=== PATIENT | male | born 1970 | race African-American/Black ===

== ENCOUNTER 2016-09-04 13:26 | Emergency (ER) | payer OTHER ==
[~2016-09-04] VITALS: Ht 182.9 cm; Wt 97.5 kg
[~2016-09-04 13:26] MED LIST: ARIP30TA PO; CARI350T PO; CLON2TAB PO; GABA-534 PO; HYDR-548 PO; HYDR1TAB PO; MARA300T4 PO; QUET200T PO; QUET400T PO; RALT400T PO; SULF1TAB48 PO; VENL100T4 PO; VENL75TA54 PO
[2016-09-04 13:53] LABS: BASOPHILS % (AUTO) 1.1 % (0.0-2.0); DIFF TOTAL % 100 %; EOSINOPHILS # (AUTO) 0.1 /CMM (0.0-0.7); EOSINOPHILS % (AUTO) 1.9 % (0.0-6.0); HEMATOCRIT 44 % (39-51); HEMOGLOBIN 14.9 g/dL (13.5-17.5); LYMPHOCYTES # (AUTO) 1.7 /CMM (0.8-4.8); LYMPHOCYTES % (AUTO) 39.7 % (20.0-44.0); MEAN CORPUSCULAR HEMOGLOBIN 33 PG (26.0-33.0); MEAN CORPUSCULAR HGB CONC 34 g/dl (31.0-36.0); MEAN CORPUSCULAR VOLUME 97 fL (80-96); MONOCYTES # (AUTO) 0.6 /CMM (0.1-1.30); MONOCYTES % (AUTO) 13.2 % (2.0-12.0); NEUTROPHILS # (AUTO) 1.8 /CMM (1.8-8.9); NEUTROPHILS % (AUTO) 44.1 % (43.0-81.0); PLATELET COUNT (AUTO) 363 /CMM (150-450); RED BLOOD CELL COUNT(AUTO) 4.58 MIL/uL (4.5-6.0); WHITE BLOOD COUNT (AUTO) 4.2 K/uL (4.3-11.0)
[2016-09-04 14:00] LABS: ANION GAP 11 (5-14); CALCIUM, SERUM 9.1 mg/dL (8.5-10.1); CARBON DIOXIDE 28 mmol/L (21-32); CHLORIDE 107 mmol/L (98-107); GFR 97 mL/min (>60); GLUCOSE 82 mg/dL (74-106); SODIUM SERUM 142 mmol/L (136-145); UREA NITROGEN, BLOOD 12 mg/dL (7-18)
[2016-09-04 14:03] LABS: ADD UA MICROSCOPIC NO; KETONES,URINE Negative (NEGATIVE); LEUKOCYTE ESTERASE ,URINE Negative (NEGATIVE)
[2016-09-04 14:11] LABS: ALANINE AMINOTRANSFERASE 15 U/L (12-78); ALBUMIN 4.1 g/dL (3.4-5.0); ASPARTATE AMINOTRANSFERASE 17 U/L (15-37); BILIRUBIN,DIRECT 0.1 mg/dL (0.0-0.2); BILIRUBIN,TOTAL 0.7 mg/dL (0.2-1.0); INDIRECT BILIRUBIN 0.6 mg/dL (0.0-1.1); SALICYLATE 2.4 mg/dL (2.8-20.0); TOTAL PROTEIN, SERUM 7.6 g/dL (6.4-8.2)
[2016-09-04 14:12] LABS: ACETAMINOPHEN 0 ug/ml (10-30)
[2016-09-04 14:13] LABS: CANNABINOID, URINE NEGATIVE (NEGATIVE); PHENCYCLIDINE SCREEN,URINE NEGATIVE (NEGATIVE)
[2016-09-04] MEDS ORDERED: LORAZEPAM 1 MG TABLET ONE (17:01)
[2016-09-04] MEDS ORDERED: LORAZEPAM 1 MG TABLET PO ONE (17:30)
[2016-09-04] MEDS ORDERED: QUETIAPINE FUMARATE 100 MG TABLET PO SCH (17:30)
[2016-09-04 20:35] VITALS: BP 116/65
== END 2016-09-04 20:37 ==
LOC: ER 13:28
DX: F29 Unspecified psychosis not due to a substance or known physiological condition (principal); F20.9 Schizophrenia, unspecified; F32.9 Major depressive disorder, single episode, unspecified; R44.0 Auditory hallucinations; Z88.1 Allergy status to other antibiotic agents; Z72.0 Tobacco use
CPT/HCPCS: 36415; 80048-TC; 80076-TC; 80305; 81000-TC; 85025-TC; A4606; G0480; G6039-TC; Z7610

== ENCOUNTER 2016-10-24 10:45 | Inpatient (IN) | payer OTHER ==
[~2016-10-24] VITALS: Ht 182.9 cm; Wt 98.9 kg
--- NOTE | 2016-10-24 12:57 | NUR ---
MS 2 / RN ADMITTING NOTES ADMITTED PATIENT AMBULATORY ACCOMPANIED BY STAFF OF DR DELEON WITH DIAGNOSIS OF SCHIZOPRENIA WITH CONDITION OF ACUTE EXACERBATION OF PSYCHOSIS. PATIENT HAS SIGNIFICANT DIAGNOSIS OF DEPRESSION, HIV, COPD AND PAST STOMACH SURGERY. PATIENT IS ADMITTED FOR CLINICAL TRIAL. HE IS ALERT AND ORIENTED X4, IN NO ACUTE SIGNS OF DISTRESS. ABLE TO VERBALIZED NEEDS WITH NO COMPLAINTS OF PAIN OR DISCOMFORTS DURING ADMISSION. DENIES ANY SUICIDAL IDEATION. PATIENT IS ON REGULAR DIET AND SMOKER, HE IS ALLOWED TO SMOKE OUTSIDE PER UNIT SCHEDULE. HE IS ON ROOM AIR, TOLERATING AND BREATHING WELL. PLACED CALL LIGHT WITHIN EASY REACH. BED KEPT LOW AND LOCK FOR SAFETY. WILL CONTINUE TO ASSESS AND MONITOR PATIENT'S CONDITION ACCORDINGLY.
[2016-10-24 14:50] VITALS: BP 134/85
[2016-10-24 16:00] VITALS: BP 150/83
[2016-10-24] MEDS ORDERED: MAG HYDROX/AL HYDROX/SIMETH 30 ML UDC PO PRN (16:00)
[2016-10-24] MEDS ORDERED: LORAZEPAM 1 MG TABLET FOR AGITATION PO PRN (16:00)
[2016-10-24] MEDS ORDERED: IBUPROFEN 200 MG TABLET PO PRN (16:00)
[2016-10-24] MEDS ORDERED: ACETAMINOPHEN ES 500 MG TABLET PO PRN (16:00)
[2016-10-24] MEDS ORDERED: MAGNESIUM HYDROXIDE 30 ML UDC PO PRN (16:00)
[2016-10-24] MEDS: ESCITALOPRAM OXALATE (10 MG) 10 MG TABLET PO SCH (16:45)
[2016-10-24] MEDS: LORAZEPAM 1 MG TABLET PO SCH (17:22)
--- NOTE | 2016-10-24 19:02 | NUR ---
MS RN CLOSING NOTES: PATIENT RESTING IN BED IN NO ACUTE SIGNS OF DISTRESS. ALERT AND ORIENTED X 4 AND ABLE TO MAKE NEEDS AND CONCERNS KNOWN. PATIENT AMBULATES AT TIMES DURING TOUR. MAINTAINED ON ROOM AIR, BREATHING WELL WITH NO SOB NOTED. ALL NEEDS AND CARE WELL PROVIDED. DUE MEDS GIVEN ORDERED AND TOLERATED. CALL LIGHT KEPT WITHIN REACH. BED LOW AND LOCKED FOR SAFETY PRECAUTIONS. WILL ENDORSED TO NEWS PRODUCTION ASSISTANT FOR CONTINUITY OF CARE.
--- NOTE | 2016-10-24 19:30 | NUR ---
RN NOTE; RECEIVED PT IN BED AWAKE AND ALERT. BREATHING EVENLY. NO SOB. NO DISTRESS. SKIN WARM AND DRY TO TOUCH. NO PSYCH OR BEHAVIORAL ISSUES NOTED AT THIS TIME. NO C/O PAIN OR DISCOMFORT. REQUESTING SMOKING BREAK. NEEDS ATTENDED. CALL LIGHT WITHIN REACH. WILL CONT TO MONITOR.
[2016-10-24 20:00] VITALS: BP 142/80
[2016-10-24] MEDS: OLANZAPINE 10 MG TABLET PO SCH (21:18)
[2016-10-24] MEDS ORDERED: QUETIAPINE FUMARATE 100 MG TABLET PO SCH (22:00)
[2016-10-24] MEDS: LORAZEPAM 1 MG TABLET FOR INSOMNIA PO PRN (23:47)
--- NOTE | 2016-10-24 23:48 | NUR ---
RN NOTE; ATIVAN GIVEN PER PT'S REQUEST FOR C/O INSOMNIA. WILL CONT TO MONITOR
[2016-10-25] VITALS: BP 142/80
--- NOTE | 2016-10-25 06:37 | NUR ---
RN NOTE; PT AWAKE AND AMBULATORY. OX3. REMAINED STABLE DURING THE SURGEON ASSISTANT W/ NO ACUTE CHANGES. NO BEHAVIORAL OR PSYCH ISSUES. NO REPORTED HALLUCINATIONS. NEEDS ATTENDED. ASSISTED W/ ADLS. CALL LIGHT WITHIN REACH. WILL CONT TO MONITOR AND WILL ENDORSE TO AM SHIFT FOR IRVIN.
[2016-10-25 08:00] VITALS: BP 118/80
[2016-10-25] MEDS: LORAZEPAM 1 MG TABLET PO SCH ×3 (08:57→16:19)
[2016-10-25] MEDS: ESCITALOPRAM OXALATE (10 MG) 10 MG TABLET PO SCH (08:57)
--- NOTE | 2016-10-25 09:30 | NUR ---
MS RN NOTES PATIENT REQUESTED TO ATTEND ACTIVITY ROOM ESCORTED TO ACTIVITY ROOM.
--- NOTE | 2016-10-25 14:00 | NUR ---
MS RN NOTES PATIENT NOTED PLAYING FOREST WITH ROOMMATE.
[2016-10-25 16:06] VITALS: BP 109/72
--- NOTE | 2016-10-25 19:29 | NUR ---
MS RN NOTES PATIENT IN BED RESTING NO SOB OR ACUTE DISTRESS. ALL DUE MEDICATIONS GIVEN, ALL NEED MET WILL ENDORSE TO PM SHIFT IRVIN. PATIENT COOPERATIVE , COMPLIANT NOTED HOURS OF SLEEP 1 HOUR. WILL ENDORSE TO PM SHIFT IRVIN.
[2016-10-25 20:00] VITALS: BP 135/80
--- NOTE | 2016-10-25 20:00 | NUR ---
RN NOTES RECEIVED PX AWAKE, ALERT, ORIENTED X 3, MOVING INDEPENDENTLY IN BED; COOPERATIVE; DENIED PAIN, SOB, N/V; WITH STEADY GAIT; WILL CONTINUE TO MONITOR.
[2016-10-25] MEDS: LORAZEPAM 1 MG TABLET FOR INSOMNIA PO PRN (21:05)
--- NOTE | 2016-10-25 21:11 | NUR ---
RN NOTES BACK TO ROOM AFTER SMOKING CIGARETTE, ACCOMPLANIED BY STOCK WORKER. REQUESTED FOR ATIVAN FOR SLEEP.
[2016-10-25] MEDS ORDERED: QUETIAPINE 300 MG PO SCH (22:00)
[2016-10-25] MEDS ORDERED: QUETIAPINE FUMARATE 100 MG TABLET PO SCH (22:00)
[2016-10-25] MEDS ORDERED: OLANZAPINE 2.5 MG TABLET ONE (22:18)
[2016-10-25] MEDS: OLANZAPINE 10 MG TABLET PO SCH (22:26)
--- NOTE | 2016-10-25 23:00 | NUR ---
RN NOTES PX ATE 2 SANDWICHES PER REQUEST. DENIED PAIN, SOB. DENIED HALLUCINATIONS.
--- NOTE | 2016-10-26 00:53 | NUR ---
RN NOTES SLEEPING, NOT IN DISTRESS, RESP EVEN AND UNLABORED.
--- NOTE | 2016-10-26 06:15 | NUR ---
RN NOTES CONDITION UNCHANGED; PATIENT RESTING COMFORTABLY IN BED, NO SOB, NO DISTRESS, NOT IN APPARENT PAIN, SLEPT FOR 5 HOURS DURING SHIFT FROM [id number]. NO BEHAVIOR CHANGE, HE DENIED HE HAS HALLUCINATIONS AT THIS TIME. PATIENT IS COOPERATIVE AND CALM. NEEDS ATTENDED. CALL LIGHT WITHIN REACH.
[2016-10-26 08:00] VITALS: BP 118/70
--- NOTE | 2016-10-26 08:00 | NUR ---
MS RN NOTES PATIENT NOTED SLEEPING IN BED WILL CONTINUE TO MONITOR.
[2016-10-26] MEDS: LORAZEPAM 1 MG TABLET PO SCH ×3 (08:27→16:54)
[2016-10-26] MEDS: ESCITALOPRAM OXALATE (10 MG) 10 MG TABLET PO SCH (08:27)
[2016-10-26 16:00] VITALS: BP 113/69
--- NOTE | 2016-10-26 19:03 | NUR ---
MS RN NOTES PATIENT IN BED RESTING NO SOB OR ACUTE DISTRESS NOTED. ALL DUE MEDICATIONS GIVEN, ALL NEEDS MET. PATIENT COOPERATIVE, NOTED HOURS OF SLEEP 4 HOURS.
--- NOTE | 2016-10-26 19:40 | NUR ---
MS/RN OPENING NOTES PT AWAKE, A/OX4, ON ROOM AIR, NO S/S OF DISTRESS NOTED. DENIES PAIN. BREATHING EVEN AND UNLABORED. PT IS CALM AND COOPERATIVE, AND NOTES ON/OFF AUDITORY HALLUCINATIONS BUT NONE AT THIS TIME. MENTIONED THAT HE USES HEADPHONES TO DISTRACT FROM THE HALLUCINATIONS. DENIES THOUGHTS OF SI/HI. BED IN LOW/LOCKED POSITION. CALL LIGHT IN CLOSE REACH. WILL CONTINUE TO MONITOR.
[2016-10-26 20:00] VITALS: BP 118/79
--- NOTE | 2016-10-26 20:45 | NUR ---
MS/RN NOTES PT BACK TO UNIT FROM SMOKING, ACCOMPANIED BY RISK PREVENTION ENGINEER.
[2016-10-26 21:00] VITALS: BP 118/79
[2016-10-26] MEDS: QUETIAPINE 200 MG PO SCH (23:18)
[2016-10-26] MEDS: LORAZEPAM 1 MG TABLET FOR INSOMNIA PO PRN (23:21)
--- NOTE | 2016-10-26 23:25 | NUR ---
MS/RN NOTES PT REQUESTING ATIVAN TO HELP HIM SLEEP. ADMINISTERED PRN ATIVAN 1MG PO. WILL MONITOR FOR EFFECTIVENESS
[2016-10-27] MEDS ORDERED: OLANZAPINE 10 MG TABLET ONE (00:24)
--- NOTE | 2016-10-27 00:30 | NUR ---
MS/RN NOTES GAVE SCHEDULED ZYPREXA 10MG PO LATE. MED NOT SHOWING UP IN [facility]. CHECKED CASSETTE AND ONLY HOME MEDICATION WAS IN CASSETTE. ASKED STICKER HAND SANTO IF SHE COULD OVERRIDE AND SHE SAID TO ASK BUZZSAW OPERATOR HELPERALDA DURANT FROM 3W. ASKED BUZZSAW OPERATOR HELPER FROM 3W IF SHE COULD OVER RIDE BUT WAS BUSY WITH 2 UNSTABLE PATIENTS, SHE WOULD COME UP SOON SHE WAS DONE. DOUBLE CHECKED MEDICATION ORDER WITH ALDA HOLDEN DUE TO THE MEDICATION NOT SHOWING UP AT ALL IN THE [facility] BUT WAS SHOWN A SCHEDULED ORDER ON THE EMAR. CARLEEN VERIFIED ORDER AND SAID OKAY TO GIVE, UNSURE WHY IT WASNT SHOWN IN [facility] IF IT WAS A SCHEDULED MEDICATION. ZYPREXA ADMINISTERED
[2016-10-27] MEDS: OLANZAPINE 10 MG TABLET PO SCH (00:31)
--- NOTE | 2016-10-27 00:45 | NUR ---
MS/RN NOTES PT BACK TO UNIT, GOT COOKIES FROM VENDING MACHINE DOWNSTAIRS. ACCOMPANIED BY MAINTENANCE CRAFTSMAN.
--- NOTE | 2016-10-27 07:27 | NUR ---
MS/RN CLOSING NOTES PT AWAKE, A/OX4. ON ROOM AIR, BREATHING EVEN AND UNLABORED. DENIES PAIN. ALL DUE MEDICATION ADMINISTERED. SLEPT 5 HOURS FROM 0100- 0600. MADE PT COMFORTABLE THROUGHOUT SHIFT, ALL NEEDS MET AND ATTENDED TO. BED IN LOW/LOCKED POSITION, CALL LIGHT IN REACH. ENDORSED TO AM SHIFT IRVIN.
[2016-10-27 08:00] VITALS: BP 107/72
--- NOTE | 2016-10-27 08:00 | NUR ---
MS RN NOTES PATIENT IN BED SLEEPING NO SOB OR ACUTE DISTRESS NOTED. BED IN LOW LOCKED POSITION, CALL LIGHT WITHIN REACH WILL CONTINUE TO MONITOR.
[2016-10-27] MEDS: LORAZEPAM 1 MG TABLET PO SCH ×3 (08:21→17:48)
[2016-10-27 16:00] VITALS: BP 110/78
--- NOTE | 2016-10-27 18:45 | NUR ---
MS RN NOTES PATIENT IN BED RESTING NO SOB OR ACUTE DISTRESS NOTED. ALL DUE MEDICATIONS GIVEN, ALL NEEDS MET. PATIENT DENIES FEELING ANXIOUS. NO AGITATION NOTED. WILL ENDORSE CARE TO PM SHIFT.
--- NOTE | 2016-10-27 19:30 | NUR ---
MS/RN OPENING NOTES PT AWAKE, A/OX4, ON ROOM AIR WITH NO DISTRESS NOTED. DENIES PAIN. CALM AND COOPERATIVE, WITHDRAWN. DENIES SI/HI. NOTED AUDITORY HALLUCINATIONS OFF/ON, SAYS THAT THEY ARE TAUNTING HIM. BED IN LOW/LOCKED POSITION, CALL LIGHT IN REACH. WILL CONTINUE TO MONITOR
[2016-10-27 20:00] VITALS: BP 133/76
[2016-10-27] MEDS ORDERED: OLANZAPINE 5 MG TABLET ONE (21:34)
--- NOTE | 2016-10-27 22:00 | NUR ---
MS/RN NOTES PT ARRIVED TO UNIT FROM SMOKE BREAK, ACCOMPANIED BY GLASS SELECTOR. WILL CONTINUE TO MONITOR
[2016-10-27] MEDS: QUETIAPINE 200 MG PO SCH (22:18)
[2016-10-27] MEDS: LORAZEPAM 1 MG TABLET FOR INSOMNIA PO PRN (22:18)
[2016-10-27] MEDS: OLANZAPINE 5 MG TABLET PO SCH (22:18)
--- NOTE | 2016-10-28 07:03 | NUR ---
MS/RN CLOSING NOTES PT ASLEEP, EASILY AROUSABLE TO NAME/TOUCH. NO CHANGES OVERNIGHT. PT SLEPT APPROX. 6HRS DURING SHIFT. HAD A SHOWER AROUND 0600 THIS AM. MADE PT COMFORTABLE THROUGHOUT SHIFT. ALL NEEDS MET AND ATTENDED TO. WILL ENDORSE TO AM SHIFT IRVIN. Addendum: 10/28/16 at 0738 by PERI VELASQUEZ RN NO CHANGES IN BEHAVIOR NOTED. PT REMAINS PLEASANT, CALM AND COOPERATIVE.
--- NOTE | 2016-10-28 08:27 | NUR ---
MS/RN NOTES PATIENT AWAKE AND ORIENTED X4, AMBULATORY WITH STEADY GAIT, COMFORTABLE WITH NO S/S OF DISTRESS OR DISCOMFORT. PATIENT DENIES PAIN AT THIS TIME. INSTRUCTED PATIENT TO USE THE CALL LIGHT FOR ASSISTANCE. WILL CONTINUE TO MONITOR.
[2016-10-28 08:38] VITALS: BP 136/88
[2016-10-28] MEDS: ESCITALOPRAM OXALATE (10 MG) 10 MG TABLET PO SCH (09:34)
[2016-10-28] MEDS: LORAZEPAM 1 MG TABLET PO SCH ×3 (09:34→18:20)
[2016-10-28 16:00] VITALS: BP 119/69
--- NOTE | 2016-10-28 18:14 | NUR ---
MS/RN NOTES RECEIVED VERBAL ORDER BY DR. DELEON TO CHANGE ATIVAN 1MG EVERY 6 HOURS PRN TO ATIVAN 1MG EVERY 4 HOURS PRN AND TO CHANGE ATIVAN 1 MG HS PRN TO ATIVAN 2 MG HS PRN. ORDERS SENT TO PHARMACY .
[2016-10-28] MEDS ORDERED: LORAZEPAM 1 MG TABLET FOR AGITATION PO PRN (19:00)
[2016-10-28 20:00] VITALS: BP 131/77
--- NOTE | 2016-10-28 20:00 | NUR ---
RN NOTES PX RECEIVED AWAKE, ALERT, ORIENTED X 3, ON ROOM AIR, AMBULATORY WITH STEADY GAIT; DENIED SOB, N/V, NOT IN DISTRESS; DENIED HALLUCINATIONS; COMPLAINED OF HEADACHE FRONTAL DULL 6/10, TYLENOL GIVEN PER REQUEST. DISCUSSED PLAN OF CARE.
[2016-10-28] MEDS: OLANZAPINE 5 MG TABLET PO SCH (21:21)
[2016-10-28] MEDS: QUETIAPINE 200 MG PO SCH (21:21)
[2016-10-28] MEDS: LORAZEPAM 1 MG TABLET FOR INSOMNIA PO PRN (21:25)
[2016-10-28] MEDS ORDERED: QUETIAPINE FUMARATE 100 MG TABLET PO SCH (22:00)
--- NOTE | 2016-10-29 02:13 | NUR ---
RN NOTES PX SLEEPING, RESP EVEN AND UNLABORED; NO S/SX OF DISTRESS. CONTINUED TO MONITOR. CALL LIGHT WITHIN REACH.
--- NOTE | 2016-10-29 06:19 | NUR ---
RN NOTES PX ALREADY AWAKE, GOT UP AND TOOK A SHOWER; DENIED PAIN, SOB, N/V; NO ADVERSE EVENTS OVERNIGHT; PX REMAINED CALM AND COOPERATIVE. WILL ENDORSE TO NEXT RN.
--- NOTE | 2016-10-29 07:15 | NUR ---
MS RN OPENING RECEIVED PATIENT A/OX4 DENIES PAIN, SOB, DIFFICULTY BREATHING PATIENT RESTING COMFORTABLY AT THIS TIME. PATIENT STATES NO NEEDS AND CALL LIGHT IN REACH, BED LOWERED AND LOCKED, RAILS UPX2 FOR SAFETY AND WILL ROUND Q2HOR LESS PER NEEDS
[2016-10-29 08:00] VITALS: BP 126/88
[2016-10-29] MEDS: ESCITALOPRAM OXALATE (10 MG) 10 MG TABLET PO SCH (09:14)
[2016-10-29] MEDS: LORAZEPAM 1 MG TABLET PO SCH ×3 (09:15→16:42)
[2016-10-29 16:00] VITALS: BP 124/87
--- NOTE | 2016-10-29 18:49 | NUR ---
MS RN CLOSING PATIENT STABLE NO COMPLICATIONS. ALL DUE MEDS GIVEN ALL NEEDS MET. PATIENT INDEPENDENT. PATIENT LEFT WITH CALL LIGHT IN REACH, BED LOWERED AND LOCKED, RAILS UPX3 FOR SAFETY. WILL ENDORSE CARE TO RN. PATIENT COMPLIANT AND NO COMPLICATIONS.
--- NOTE | 2016-10-29 19:40 | NUR ---
MS CLINICAL TRIALS STUDY SITTING ON EDGE OF BED EATING HIS DINNER FOOD,NO SUSPICIOUS BEHAVIOR NOTED,AMBULATORY.CALL LIGHT IN REACH,NEEDS ANTICIPATED.
[2016-10-29 20:00] VITALS: BP 128/70
[2016-10-29] MEDS ORDERED: OLANZAPINE 5 MG TABLET ONE (20:47)
[2016-10-29] MEDS: OLANZAPINE 5 MG TABLET PO SCH (21:03)
[2016-10-29] MEDS: QUETIAPINE 200 MG PO SCH (21:03)
[2016-10-29] MEDS: LORAZEPAM 1 MG TABLET FOR INSOMNIA PO PRN (21:10)
--- NOTE | 2016-10-29 21:10 | NUR ---
MS CLINICAL STUDY C/O INSOMNIA,ATIVAN 2MG PO GIVEN
--- NOTE | 2016-10-30 06:27 | NUR ---
MS RN NOTES SLEPT 8 HOURS AT [facility],REMAINS CALM.MED COMPLIANT.STABLE TO CONTINUE WITH CLINICAL STUDY.WILL ENDORSE TO DAY NURSE FOR IRVIN.
[2016-10-30 08:00] VITALS: BP 129/76
[2016-10-30] MEDS: LORAZEPAM 1 MG TABLET PO SCH ×3 (08:47→17:04)
[2016-10-30] MEDS: ESCITALOPRAM OXALATE (10 MG) 10 MG TABLET PO SCH (08:47)
[2016-10-30 16:00] VITALS: BP 131/81
[2016-10-30 20:00] VITALS: BP 126/88
[2016-10-30] MEDS: LORAZEPAM 1 MG TABLET FOR INSOMNIA PO PRN (20:14)
--- NOTE | 2016-10-30 20:19 | NUR ---
ms/rn notes Patient in bed, alert et oriented. Respiration even et unlabored. No sob noted. Vital signs stable. No complaints of pain or discomfort at this time. Ativan 2 mg po given as ordered, Will continue to monitor,
--- NOTE | 2016-10-31 07:00 | NUR ---
MS RN NOTES REPORT RECEIVED AT THE BEDSIDE. PATIENT IS RESTING COMFORTABLY IN BED. NO SOB OR DISTRESS NOTED. PATIENT DENIES PAIN. BED IN A LOW POSITION, CALL LIGHT WITHIN PATIENT REACH. WILL CONTINUE TO MONITOR.
[2016-10-31 08:00] VITALS: BP 136/89
[2016-10-31] MEDS ORDERED: INVEST MED MK-8189 MISC 1 CAP EA PO SCH (09:00)
[2016-10-31] MEDS ORDERED: INVEST MED MK-8189 MISC 1 TAB EA PO SCH (09:00)
--- NOTE | 2016-10-31 09:21 | NUR ---
MS RN NOTES RECEIVED A CALL FROM DR JOHNSON THAT THE PATIENT WILL NO LONGER BE KEPT NPO AND WILL BE DISCHARGED HE NO LONGER MEETS STUDY CRITERIA. GAVE PATIENT MORNING MEAL. WILL START DISCHARGE PAPERWORK.
--- NOTE | 2016-10-31 10:28 | NUR ---
MS RN NOTES CONFIRMED DISCHARGE ORDER FROM DR DELEON. STATES THAT HE HAS ALREADY SPOKEN TO THE PATIENT ABOUT FOLLOW UP AND TO RESUME HIS HOME MEDS. DISCHARGE ORDER PLACED. WILL PREPARE PAPERWORK.
--- NOTE | 2016-10-31 10:41 | NUR ---
MS RN NOTES DISCHARGE INSTRUCTIONS GIVEN TO PATIENT BY MD. ALL PAPERWORK SIGNED AND BELONGINGS ACCOUNTED FOR. MEDICATIONS RETURNED TO PATIENT. NO SOB OR DISTRESS ON DISCHARGE. PATIENT UNDERSTANDS FOLLOW UP WITH MD. PATIENT LEFT IN STABLE CONDITION, AMBULATORY, VIA PRIVATE CAR.
[2016-10-31] MEDS ORDERED: LORAZEPAM 1 MG TABLET PO SCH (14:00)
[2016-10-31] MEDS ORDERED: LORAZEPAM 1 MG TABLET FOR AGITATION PO PRN ×2 (14:00)
[2016-10-31] MEDS ORDERED: LORAZEPAM 1 MG TABLET FOR INSOMNIA PO PRN ×2 (22:00)
[2016-11-03] MEDS ORDERED: INVEST MED MK-8189 MISC 2 CAP EA PO SCH (09:00)
[2016-11-03] MEDS ORDERED: INVEST MED MK-8189 MISC 2 TAB EA PO SCH (09:00)
[2016-11-06] MEDS ORDERED: INVEST MED MK-8189 MISC 3 CAP EA PO SCH (09:00)
[2016-11-06] MEDS ORDERED: INVEST MED MK-8189 MISC 3 TAB EA PO SCH (09:00)
[2016-11-07] MEDS ORDERED: LORAZEPAM 1 MG TABLET PO SCH (14:00)
[2016-11-07] MEDS ORDERED: LORAZEPAM 1 MG TABLET FOR AGITATION PO PRN ×2 (14:00)
[2016-11-07] MEDS ORDERED: LORAZEPAM 1 MG TABLET FOR INSOMNIA PO PRN ×2 (22:00)
[2016-11-14] MEDS ORDERED: LORAZEPAM 1 MG TABLET FOR AGITATION PO PRN ×2 (14:00)
[2016-11-14] MEDS ORDERED: LORAZEPAM 1 MG TABLET PO SCH (14:00)
[2016-11-14] MEDS ORDERED: LORAZEPAM 1 MG TABLET FOR INSOMNIA PO PRN ×2 (22:00)
[2016-11-21] MEDS ORDERED: LORAZEPAM 1 MG TABLET FOR AGITATION PO PRN ×2 (14:00)
[2016-11-21] MEDS ORDERED: LORAZEPAM 1 MG TABLET PO SCH (14:00)
[2016-11-21] MEDS ORDERED: LORAZEPAM 1 MG TABLET FOR INSOMNIA PO PRN ×2 (22:00)
[2016-11-28] MEDS ORDERED: LORAZEPAM 1 MG TABLET PO SCH (14:00)
[2016-11-28] MEDS ORDERED: LORAZEPAM 1 MG TABLET FOR AGITATION PO PRN ×2 (14:00)
[2016-11-28] MEDS ORDERED: LORAZEPAM 1 MG TABLET FOR INSOMNIA PO PRN ×2 (22:00)
== END 2016-10-31 10:30 | disposition home or self-care (01) | DRG 951 ==
LOC: MEDSG2 13:40
PROVIDERS: ADMIT Psychiatry & Neurology Psychiatry; ATTEND Psychiatry & Neurology Psychiatry
DX: Z00.6 Encounter for examination for normal comparison and control in clinical research program (principal); F20.0 Paranoid schizophrenia; Z91.5 Personal history of self-harm; Z79.899 Other long term (current) drug therapy